=== PATIENT | female | born 1990 | race Caucasian/White ===

== ENCOUNTER → 2021-08-11 | Day surgery (SDC) | payer OTHER ==
[~2021-08-11] VITALS: Ht 157.5 cm; Wt 53.1 kg
[~2021-08-11] MED LIST: AMOXICILLI400 MG/5 M PO; HYDROCODON-ACE118 ML PO; NORETHINDRONE0.35 MG PO; PNV 29-1 TABLE1 EACH PO
--- NOTE | ~2021-08-11 | O ---
[facility] [place] [address] OPERATIVE REPORT Name: CANDICE ONOFRE Room #: REG [facility]#: [id number] Admission: 08/11/21 Attend Phys: Raymon Loza MD Discharge: Date of : 86 Report #: [id number] THIS REPORT FOR: cc: FAM - Family physician unknown FAM - Family physician unknown Raymon Loza MD ~ DATE OF SERVICE: 08/11/2021 PREOPERATIVE DIAGNOSES: Chronic tonsillitis with tonsillar hypertrophy. POSTOPERATIVE DIAGNOSES: Chronic tonsillitis with tonsillar hypertrophy. OPERATIVE PROCEDURE: Tonsillectomy. ANESTHESIA: General endotracheal. PROCEDURE: The patient was taken to the operating room and placed in supine position. General anesthesia was induced by endotracheal intubation. Once adequate general anesthesia was obtained, the patient was draped in a sterile manner. A Brendon-Anselmo mouth gag was placed in the patient's mouth and the tongue was deviated upward. The right tonsil was grasped and deviated towards the midline and the incision was placed in the anterior tonsillar pillar using the Bovie electrocautery and a plane between the tonsillar capsule and tonsillar fossae were established. Dissection was carried out in the spine using the Bovie and hemostasis was achieved during the dissection. Dissection was carried out from superior to inferior. The inferior pole was incised. Posterior tonsillar mucosa was incised. The tonsil was removed and sent to pathology. The left tonsil was removed in exactly the same manner. The area was then irrigated with normal saline. Hemostasis was verified in the tonsillar beds. The mouth gag was removed. The patient tolerated the procedure well. Blood loss was approximately 5 mL. The patient was then awoken and taken to recovery room in stable condition for postoperative monitoring. By: 0818 0825 Raymon Loza MD /nt
[2021-08-11 07:54] VITALS: BP 101/63
--- NOTE | 2021-08-11 09:19 | H ---
[facility] [place] [address] HISTORY AND PHYSICAL Name: CANDICE ONOFRE Room #: REG [facility].#: [id number] Admission: 08/11/21 Attend Phys: Raymon Loza MD Discharge: Date of : 86 Report #: [id number] THIS REPORT FOR: cc: FAM - Family physician unknown FAM - Family physician unknown Raymon Loza MD ~ DATE OF SERVICE: 08/11/2021 HISTORY OF PRESENT ILLNESS: The patient has had problems with her tonsils all her life. She remembers getting a lot of strep tonsillitis as a child. She has had persistently swollen tonsils into adulthood. She has persistent swelling of the tonsils with discomfort and material that comes out of the tonsils that smells terrible. PAST MEDICAL HISTORY: Otherwise not significant. MEDICATIONS: She takes no medications on a regular basis. ALLERGIES: She has no known drug allergies. PHYSICAL EXAMINATION: Her nose was clear. She had 3+ enlarged tonsils with deep crypts and material in the crypts. The posterior pharyngeal wall was smooth. She had upper cervical adenopathy. IMPRESSION: Chronic tonsillitis with tonsillar hypertrophy. PLAN: Tonsillectomy. <ELECTRONICALLY SIGNED> By: Raymon Loza MD 08/11/21 0919 1411 1423 Raymon Loza MD /nt
[2021-08-11 09:45] VITALS: BP 101/63
--- NOTE | 2021-08-14 10:07 | PATH ---
[facility] [address] [address] PATHOLOGY RPT PROCEDURE Name: CANDICE ONOFRE Room #: REG [facility].#: [id number] Admission: 08/11/21 Date of : 86 Discharge: Report #: [id number] Path Case #: [id number] [facility] Accession Number: [id number] . 01 Material submitted: . PART A: tonsil - RIGHT TONSIL. Modifiers: right PART B: tonsil - LEFT TONSIL. Modifiers: left . 01 Clinical history: . TONSILLECTOMY CHRONIC TONSILLITIS, TONSILLAR HYPERTROPHY . 02 Diagnosis: A. [place] tonsil "right", excision: - Reactive lymphoid hyperplasia with focal crypt abscess formation. - Negative for malignancy. . B. [place] tonsil "left", excision: - Reactive lymphoid hyperplasia with focal crypt abscess formation. - Negative for malignancy. . (MIGUEL:dino; 08/12/2021) MBR 08/12/2021 1830 Local . 02 Electronically signed: . Sita Rivera MD, Pathologist NPI- [id number] . 01 Gross description: . A. Fixative: Formalin Labeled: Right tonsil Specimen received: [place] tonsil Dimensions: 2.5 x 1.7 x 0.8 cm Mucosa: Light easton-pink Cut surface: Light easton-yellow and focally hemorrhagic Roll Scale Worker section submitted in cassette A1. . B. Fixative: Formalin Labeled: Left tonsil Specimen received: [place] tonsil Dimensions: 2.6 x 1.6 x 1.0 cm Mucosa: Light easton-pink Cut surface: Light easton-yellow and focally hemorrhagic The surgical margin is inked. Roll Scale Worker section submitted in cassette B1. ([facility]; 08/11/2021) [facility] 08/11/[address] [address] PATHOLOGY RPT PROCEDURE Name: CANDICE ONOFRE Room #: REG [facility]#: [id number] Admission: 08/11/21 Date of : 86 Discharge: Report #: [id number] Path Case #: [id number] . 02 Pathologist provided ICD-10: J35.1, J36 . 02 CPT . 361063, 528647 Specimen Comment: A courtesy copy of this report has been sent to [phone] Specimen Comment: Report sent to Specimen Comment: A duplicate report has been generated due to demographic updates. Performed at: 01 [facility] [address] [id number] MD Alexey Rodgers MD Phone: [phone] Performed at: 02 [facility] [address] [id number] MD Durga Beach MD Phone: [phone]
== END | disposition home or self-care (01) ==
LOC: OR 06:37
PROVIDERS: ATTEND Otolaryngology
DX: J35.01 Chronic tonsillitis (principal); Z98.890 Other specified postprocedural states; Z79.899 Other long term (current) drug therapy; Z87.891 Personal history of nicotine dependence; Z20.822 Contact with and (suspected) exposure to COVID-19
CPT/HCPCS: 50010; 50101; 62110; 62900; 70005